=== PATIENT | male | born 1990 | race Caucasian/White ===

== ENCOUNTER 2017-01-25 22:44 | Emergency (ER) | payer SELFPAY ==
[~2017-01-25] VITALS: Ht 172.7 cm; Wt 100.0 kg
[2017-01-25 23:07] VITALS: Ht 172.7 cm; Wt 100.0 kg
[2017-01-26] MEDS ORDERED: ALBU8.5H3 INH (04:16)
[2017-01-26] MEDS ORDERED: CETI10CA PO (04:16)
[2017-01-26] MEDS ORDERED: PRED50TA PO (04:16)
[2017-01-26] MEDS ORDERED: GUAI120S26 PO (04:16)
[2017-01-26] MEDS ORDERED: HYDR25SU23 PR (04:19)
[2017-01-26] MEDS ORDERED: POLY17PO6 PO (04:19)
[2017-01-26] MEDS ORDERED: DOCU-144 PO (04:19)
== END 2017-01-26 00:31 | disposition left against medical advice (07) ==
LOC: FTE 22:44
DX: Z53.21 Procedure and treatment not carried out due to patient leaving prior to being seen by health care provider (principal)

== ENCOUNTER 2017-01-26 03:08 | Emergency (ER) | payer MEDICARE, OTHER ==
[~2017-01-26] VITALS: Ht 172.7 cm; Wt 100.0 kg
[2017-01-26 03:14] VITALS: Ht 172.7 cm; Wt 100.0 kg
[2017-01-26] MEDS ORDERED: CETI10CA PO (04:16)
[2017-01-26] MEDS ORDERED: ALBU8.5H3 INH (04:16)
[2017-01-26] MEDS ORDERED: PRED50TA PO (04:16)
[2017-01-26] MEDS ORDERED: GUAI120S26 PO (04:16)
[2017-01-26] MEDS ORDERED: HYDR25SU23 PR (04:19)
[2017-01-26] MEDS ORDERED: POLY17PO6 PO (04:19)
[2017-01-26] MEDS ORDERED: DOCU-144 PO (04:19)
--- NOTE | 2017-01-26 04:48 | ERD ---
ER Documentation Chief Complaint Date/Time DATE: 01/26/17 TIME: 04:46 Chief Complaint states blood in stool x1. HPI 26-year-old male presents to emergency department for complaints blood streaks in the stool that started yesterday, only had one episode. Patient had blood in the toilet. Patient does not have any abdominal pain, denies any rectal pain. Patient denies any vomiting. ROS All systems reviewed and are negative except as per history of present illness. Medications Home Meds Active Scripts Docusate Sodium* (Colace*) 100 Mg Capsule, 100 MG PO TID, #30 CAP Prov:JUDE FREY NP 01/26/17 Hydrocortisone Acetate (Anusol-Hc) 25 Mg Supp.rect, 1 SUPP AR BID Y for HEMORROID PAIN/ITCHING, #12 SUPP.RECT Prov:JUDE FREY NP 01/26/17 Polyethylene Glycol* (Miralax*) 17 Gm Powd.pack, 17 GM PO DAILY, #7 Prov:JUDE FREY NP 01/26/17 Allergies Allergies: Coded Allergies: ibuprofen (Verified Allergy, Severe, AIRWAYS SWELL UP, 01/25/17) tramadol (Verified Allergy, Severe, HIVES, 01/25/17) PMhx/Soc Medical and Surgical Hx: pt denies Medical Hx, pt denies Surgical Hx Hx Alcohol Use: No Hx Substance Use: No Hx Tobacco Use: No Smoking Status: Never smoker FmHx Family History: No coronary disease, No diabetes, No other Physical Exam Vitals Vital Signs Date Time Temp Pulse Resp B/P Pulse Ox O2 Delivery O2 Flow Rate FiO2 01/26/17 03:14 98.6 75 18 126/66 97 Physical Exam GENERAL: The patient is well developed and appropriate for usual state of health, in no apparent distress. CHEST: Clear to auscultation bilaterally. There are no rales, wheezes or rhonchi. HEART: Regular rate and rhythm. No murmurs, clicks, rubs or gallops. No S3 or S4. ABDOMEN: Soft, nontender and nondistended. Good bowel sounds. No rebound or guarding. No gross peritonitis. No gross organomegaly or masses. No Esparza sign or McBurney point tenderness. BACK: No midline or flank tenderness. EXTREMITIES: Equal pulses bilaterally. There is no peripheral clubbing, cyanosis or edema. No focal swelling or erythema. Full range of motion. Grossly neurovascularly intact. NEURO: Alert and oriented. Cranial nerves 2-12 intact. Motor strength in all 4 extremities with 5/5 strength. Sensation grossly intact. Normal speech and gait. SKIN: There is no apparent rash or petechia. The skin is warm and dry. HEMATOLOGIC AND LYMPHATIC: There is no evidence of excessive bruising or lymphedema. No gross cervical, axillary, or inguinal lymphadenopathy. RECTAL: External hemorrhoid, nonthrombosed, good rectal tone, no erythema, no symptoms of any abscesses. Procedures/MDM Medical decision making: Patient symptoms most likely is consistent with external hemorrhoids. No thrombosed hemorrhoids noted, no symptoms of any active bleeding at this time. No symptoms of any acute bacterial infection. Prescription was given for Colace, Anusol suppository, MiraLAX, is advised to follow-up with primary care doctor in 2-3 days for reevaluation of symptoms. Patient was advised to return to emergency department for any worsening symptoms. Disposition: Home. Stable Departure Diagnosis: Primary Impression: External hemorrhoid Condition: Stable Patient Instructions: JUDE Doyle NP Jan 26, 2017 04:48
== END 2017-01-26 04:23 | disposition home or self-care (01) ==
LOC: FTE 03:08
DX: K64.4 Residual hemorrhoidal skin tags (principal)
CPT/HCPCS: 99284